=== PATIENT | male | born 1995 | race Caucasian/White ===

== ENCOUNTER 2019-05-03 18:09 | Emergency (ER) | payer OTHER ==
[~2019-05-03] VITALS: Ht 185.4 cm; Wt 90.7 kg
[2019-05-03] MEDS ORDERED: DOXYCYCLINE 10100 M1 PO (18:23)
[2019-05-03 18:37] VITALS: BP 142/92
== END 2019-05-03 18:38 | disposition home or self-care (01) ==
LOC: M.ERS 18:09
DX: L53.9 Erythematous condition, unspecified (principal)